=== PATIENT | female | born 1950 | race Two or more races ===

== ENCOUNTER 2022-03-08 11:45 | Inpatient (IN) | payer OTHER ==
[~2022-03-08] VITALS: Ht 157.5 cm; Wt 68.5 kg
[2022-03-09] MEDS ORDERED: NORVASC5 MG PO (08:01)
[2022-03-09] MEDS ORDERED: TENORMIN50 M1 PO (08:01)
[2022-03-09] MEDS ORDERED: ALPRAZOLAM XR0.5 MG PO (08:01)
[2022-03-09] MEDS ORDERED: LIPITOR20 MG PO (08:01)
[2022-03-09] MEDS ORDERED: METFORMIN HCL500 M3 PO (08:02)
[2022-03-09] MEDS ORDERED: FUSION PLUS CA1 EACH PO (08:02)
[2022-03-09] MEDS ORDERED: ELIQUIS2.5 MG PO (08:02)
[2022-03-09] MEDS ORDERED: DOLOGEN 325-11 EACH PO (08:02)
[2022-03-10] MEDS ORDERED: ATORVASTATIN CA40 MG (11:44)
[2022-03-10] MEDS ORDERED: TAMSULOSIN HCL0.4 MG (11:45)
[2022-03-10] MEDS ORDERED: SERTRALINE HCL50 MG (11:45)
[2022-03-10] MEDS ORDERED: NABUMETONE750 MG (11:45)
[2022-03-10] MEDS ORDERED: ELIQUIS5 MG (11:45)
[2022-03-10] MEDS ORDERED: OMEPRAZOLE20 MG (11:45)
[2022-03-10] MEDS ORDERED: VITAMIN D31250 MCG (11:45)
[2022-03-10] MEDS ORDERED: TIZANIDINE HCL4 MG (11:45)
[2022-03-10] MEDS ORDERED: METFORMIN HCL500 M1 (11:46)
== END 2022-03-12 13:38 | disposition home or self-care (01) | DRG 734 ==
LOC: O/R 03-10 05:28 → SURH 03-10 10:45 → OB/GYN 03-10 16:39
PROVIDERS: ADMIT Specialist; ATTEND Specialist
PROC: 07TD0ZZ Resection of Aortic Lymphatic, Open Approach (ICD-10-PCS; 2022-03-10)
PROC: 0UT90ZZ Resection of Uterus, Open Approach (ICD-10-PCS; 2022-03-10)
PROC: 0UT70ZZ Resection of Bilateral Fallopian Tubes, Open Approach (ICD-10-PCS; 2022-03-10)
PROC: 0UT20ZZ Resection of Bilateral Ovaries, Open Approach (ICD-10-PCS; 2022-03-10)
PROC: 0DNW0ZZ Release Peritoneum, Open Approach (ICD-10-PCS; 2022-03-10)
PROC: 0JQC0ZZ Repair Pelvic Region Subcutaneous Tissue and Fascia, Open Approach (ICD-10-PCS; 2022-03-10)
PROC: 0DTU0ZZ Resection of Omentum, Open Approach (ICD-10-PCS; 2022-03-10)
PROC: 3E1M38Z Irrigation of Peritoneal Cavity using Irrigating Substance, Percutaneous Approach (ICD-10-PCS; 2022-03-10)
PROC: 07TC0ZZ Resection of Pelvis Lymphatic, Open Approach (ICD-10-PCS; principal; 2022-03-10 10:45)
DX: C54.1 Malignant neoplasm of endometrium (principal); C77.5 Secondary and unspecified malignant neoplasm of intrapelvic lymph nodes; C79.82 Secondary malignant neoplasm of genital organs; C79.63 Secondary malignant neoplasm of bilateral ovaries; C79.89 Secondary malignant neoplasm of other specified sites; C80.1 Malignant (primary) neoplasm, unspecified